=== PATIENT | female | born 1985 | race American Indian/Alaskan Native ===

== ENCOUNTER 2020-09-05 07:47 | Day surgery (SDC) | payer MEDICAID ==
[~2020-09-05 07:47] MED LIST: BUPIVACAINE/PF (0.5%) 5 MG/1 ML 30 ML VIAL INFILTRATI ONE; SODIUM CHLORIDE 0.9% IRR 1,500 ML BOTTLE IR ONE
--- NOTE | 2020-09-05 08:36 | Anesthesia Day of Surgery ---
Anesthesia Day of Surgery - Day of Surgery Patient Examined: Yes Patient H&P Reviewed: Yes Patient is NPO: Yes
[2020-09-05] MEDS ORDERED: ACETAMINOPHEN 500 MG TAB PO NR (08:37)
[2020-09-05] MEDS ORDERED: MAGNESIUM OXIDE 400 MG TAB PO NR (08:37)
--- NOTE | 2020-09-05 08:37 | Anesthesia Consultation ---
Anesthesia Consult and Med Hx Date of service: 09/05/20 - Airway Anesthetic Teeth Evaluation: Good ROM Head & Neck: Adequate Mental/Hyoid Distance: Adequate Mallampati Class: Class II Intubation Access Assessment: Good - Pre-Operative Health Status ASA Pre-Surgery Classification: ASA1 Proposed Anesthetic Plan: General - Pulmonary Hx Respiratory Symptoms: No (+2FS) - Cardiovascular System Hx Heart Murmur: Yes - Central Nervous System Hx Psychiatric Problems: No - Hematic Hx Anemia: Yes (Past hx) Hx Sickle Cell Disease: Yes (Trait) - Other Systems Hx Alcohol Use: Yes (Occas) Hx Cancer: No Hx Obesity: No
[2020-09-05] MEDS ORDERED: HYDROmorphone 1 MG/1 ML INJ IV PRN ×2 (08:38)
[2020-09-05] MEDS ORDERED: ONDANSETRON 4 MG/2 ML INJ IV PRN (08:38)
[2020-09-05] MEDS ORDERED: LACTATED RINGERS 1,000 ML IV SCH (08:45)
[2020-09-05] MEDS ORDERED: GABAPENTIN 300 MG CAP PO NR (09:00)
[2020-09-05] MEDS ORDERED: CELECOXIB 200 MG CAP PO NR (09:00)
[2020-09-05] MEDS ORDERED: MIDAZOLAM 2 MG/2 ML INJ IV NR (09:00)
[2020-09-05] MEDS ORDERED: ONDANSETRON 4 MG/2 ML INJ ONE (09:37)
[2020-09-05] MEDS ORDERED: SUCCINYLCHOLINE CHLORIDE 200 MG/10 ML INJ MDV ONE (09:37)
[2020-09-05] MEDS ORDERED: ROCURONIUM 50 MG/5 ML INJ IV ONE (09:37)
[2020-09-05] MEDS ORDERED: dexAMETHasone 20 MG/5 ML VIAL ONE (09:37)
[2020-09-05] MEDS ORDERED: PHENYLEPHRINE/NS 1,000 MCG/10 ML SYRINGE (OR USE) IV ONE (09:37)
[2020-09-05] MEDS ORDERED: NEOSTIGMINE 10MG/10 ML INJ MDV ONE (09:37)
[2020-09-05] MEDS ORDERED: LIDOCAINE MPF (2%) 20 MG/1 ML VIAL 5 ML ONE (09:37)
[2020-09-05] MEDS ORDERED: GLYCOPYRROLATE 0.4 MG/2 ML INJ ONE (09:37)
[2020-09-05] MEDS ORDERED: propofoL 200 MG/20 ML VIAL IV ONE (09:38)
[2020-09-05] MEDS ORDERED: fentaNYL 100 MCG/2 ML INJ ONE (09:38)
[2020-09-05] MEDS ORDERED: ePHEDrine SULFATE 50 MG/1 ML INJ ONE (10:00)
[2020-09-05] MEDS ORDERED: SODIUM CHLORIDE 0.9% IRR 1,500 ML BOTTLE IR ONE (10:21)
[2020-09-05] MEDS ORDERED: BUPIVACAINE/PF (0.5%) 5 MG/1 ML 30 ML VIAL INFILTRATI ONE ×2 (10:49)
[2020-09-05] MEDS ORDERED: ESMOLOL 100 MG/10 ML INJ IV ONE (10:50)
[2020-09-05] MEDS ORDERED: HYDROmorphone 1 MG/1 ML INJ ONE (10:51)
--- NOTE | 2020-09-05 10:59 | History and Physical Report ---
History of Present Illness History of present illness: H&P done in the office and should be scanned in via the paper chart Medications and Allergies Allergies Allergy/AdvReac Type Severity Reaction Status Date / Time Penicillins Allergy Hives, Verified 09/04/20 18:28 Throat swelling Home Medications Medication Instructions Recorded Confirmed Last Taken Type No Known Home Medications [No 09/04/20 09/04/20 Unknown History Reported Home Medications] Active Meds: Active Medications Acetaminophen (Acetaminophen 500 Mg Tab) 1,000 mg PO ONCE NR Stop: 09/05/20 23:00 Celecoxib (Celecoxib 200 Mg Cap) 200 mg PO PREOP NR Stop: 09/05/20 23:00 Gabapentin (Gabapentin 300 Mg Cap) 300 mg PO PREOP NR Stop: 09/05/20 23:00 Hydromorphone HCl (Hydromorphone 1 Mg/1 Ml Inj) 0.25 mg IV Q10MIN PRN PRN Reason: Pain, Moderate (4-6) Stop: 09/05/20 23:00 Hydromorphone HCl (Hydromorphone 1 Mg/1 Ml Inj) 0.5 mg IV Q10MIN PRN PRN Reason: Pain , Severe (7-10) Stop: 09/05/20 23:00 Lactated Ringer's (Lactated Ringers) 1,000 mls @ 125 mls/hr IV DIRECT KOLE Magnesium Oxide (Magnesium Oxide 400 Mg Tab) 400 mg PO ONCE NR Stop: 09/05/20 23:00 Midazolam HCl (Midazolam 2 Mg/2 Ml Inj) 2 mg IV PREOP NR Stop: 09/05/20 23:59 Ondansetron HCl (Ondansetron 4 Mg/2 Ml Inj) 4 mg IV ONCE PRN PRN Reason: Nausea And Vomiting Stop: 09/05/20 23:00 Results All other labs normal.
--- NOTE | 2020-09-05 11:08 | Post Operative Note ---
Date of procedure: 09/05/20 Pre-op diagnosis: Simple left ovarian cyst Post-op diagnosis: same (Same) Findings: Patient with a large simple left ovarian cyst filled with clear straw-colored fluid. Cyst was anterior and superior to the uterus. The ovary was not torsed. It was approximately 7 cm in size as the ultrasound suggested. Both tubes and the right ovary were within normal limits as was the uterus. The rest of the pelvic survey was within normal limits. The upper abdominal survey was limited by presence of adhesions superior to the umbilical trocar from the omentum. Procedure: Indication: This is a 35-year-old with a large simple ovarian cyst on the left side. It was 7 cm on ultrasound. Patient having pelvic pain from it. As result patient here for procedure below. Procedure: Laparoscopic left ovarian cystectomy Patient taken the operating room and prepped and draped in usual fashion. Attention was first turned vaginally where single-tooth tenaculum was applied to the anterior lip of the cervix and an acorn uterine manipulator was placed. Attention was now turned abdominally where a 5 mm incision was made in the umbilicus. Veres needle then placed in the abdominal cavity. The abdomen was appropriately insufflated with CO2 gas. Veres needle removed and the 5 mm trocar was placed in abdominal cavity. Placement confirmed with the camera. Attention was turned suprapubically where a 5 mm incision was made and the 5 mm trocar was placed suprapubically in the midline under direct visualization. Trocar placed successfully and without difficulty. This was also done in the exact same fashion in the right lower quadrant about 2 fingerbreadths superior and medial to the ASIS. This 5 mm trocar was also placed successfully and without difficulty. Attention was now turned to the ovarian cyst. Using the EndoShears and cautery, an incision was made into the ovarian cyst. The clear straw-colored fluid was then suctioned out using the suction stain sprayer. Good hemostasis noted. The opening into the ovarian cyst was then increased with the EndoShears. At this point using graspers the cyst wall was grasped and removed from the ovary. The cyst wall was taken out and sent to pathology. Good hemostasis was still noted in the ovary. The ovarian cavity that resulted was stuffed with Surgicel. Abdomen was desufflated. Good hemostasis noted. At this point the abdomen was fully desufflated. Trochars were removed. Trocar sites were closed with 4-0 Vicryl in a subcuticular fashion followed by Marcaine. The acorn uterine manipulator and single-tooth tenaculum were removed. Procedure concluded at this point. Patient tolerated the procedure well. All instrument lap counts were correct. Patient taken to the recovery room in stable condition. Anesthesia: GETA Surgeon: MARNIE COLLINS Estimated blood loss: minimal Pathology: list (Left ovarian cyst wall) Specimen disposition: to lab Condition: stable Disposition: PACU
--- NOTE | 2020-09-05 11:12 | Short Stay Summary ---
Short Stay Documentation Date of service: 09/05/20 Narrative H&P: 35-year-old is status post an uncomplicated left ovarian cystectomy for large simple cyst on 09/05/2020. Please see H&P and operative report for details. Again surgery was uncomplicated and patient sent home in stable condition with recommendation to follow-up in the office 2 weeks postop - History H&P: obtained from office - Allergies and Medications Current Medications: Allergies Penicillins Allergy (Verified 09/04/20 18:28) Hives, Throat swelling Home Medications Medication Instructions Recorded Confirmed Last Taken Type Ibuprofen [Motrin 800 MG tab] 800 mg PO Q8HR PRN #30 tablet 09/05/20 Unknown Rx oxyCODONE /ACETAMINOPHEN [Percocet 1 tab PO Q4HR PRN #30 tab 09/05/20 Unknown Rx 5/325] Active Medications Acetaminophen (Acetaminophen 500 Mg Tab) 1,000 mg PO ONCE NR Stop: 09/05/20 23:00 Celecoxib (Celecoxib 200 Mg Cap) 200 mg PO PREOP NR Stop: 09/05/20 23:00 Gabapentin (Gabapentin 300 Mg Cap) 300 mg PO PREOP NR Stop: 09/05/20 23:00 Hydromorphone HCl (Hydromorphone 1 Mg/1 Ml Inj) 0.25 mg IV Q10MIN PRN PRN Reason: Pain, Moderate (4-6) Stop: 09/05/20 23:00 Hydromorphone HCl (Hydromorphone 1 Mg/1 Ml Inj) 0.5 mg IV Q10MIN PRN PRN Reason: Pain , Severe (7-10) Stop: 09/05/20 23:00 Lactated Ringer's (Lactated Ringers) 1,000 mls @ 125 mls/hr IV DIRECT KOLE Magnesium Oxide (Magnesium Oxide 400 Mg Tab) 400 mg PO ONCE NR Stop: 09/05/20 23:00 Midazolam HCl (Midazolam 2 Mg/2 Ml Inj) 2 mg IV PREOP NR Stop: 09/05/20 23:59 Ondansetron HCl (Ondansetron 4 Mg/2 Ml Inj) 4 mg IV ONCE PRN PRN Reason: Nausea And Vomiting Stop: 09/05/20 23:00 - Disposition Condition at discharge: Stable Disposition: DC- TO HOME OR SELFCARE Short Stay Discharge Plan Follow up with: MARNIE COLLINS MD [Staff Physician] - 14 Days Prescriptions: Ibuprofen [Motrin 800 MG tab] 800 mg PO Q8HR PRN #30 tablet PRN Reason: Pain , Severe (7-10) oxyCODONE /ACETAMINOPHEN [Percocet 5/325] 1 tab PO Q4HR PRN #30 tab PRN Reason: Pain , Severe (7-10)
[2020-09-05] MEDS ORDERED: oxyCODONE /ACETAMINOPHEN 5-325MG TAB PO PRN (11:38)
[2020-09-05 12:19] VITALS: BP 119/65
--- NOTE | 2020-09-05 17:43 | Post Anesthesia Evaluation ---
- Post Anesthesia Evaluation Patient Participated: Yes Airway Patent: Yes Stable Respiratory Function: Yes Nausea/Vomiting: No Temp > 96.8F: Yes Pain Manageable: Yes Adequeate Hydration: Yes Anesthesia Complications: No Block Receding Appropriately: Not Applicable Patient on Ventilator: No
== END 2020-09-05 12:35 | disposition home or self-care (01) ==
LOC: OR 07:47
PROVIDERS: ATTEND Obstetrics & Gynecology
DX: N83.202 Unspecified ovarian cyst, left side (principal); D64.9 Anemia, unspecified; Z79.899 Other long term (current) drug therapy; Z88.0 Allergy status to penicillin; Z98.51 Tubal ligation status; Z72.89 Other problems related to lifestyle; Z98.890 Other specified postprocedural states
CPT/HCPCS: 58662; 81025; 88305; J0330; J1100; J1170; J2370; J2405; J2704; J2710; J3010; J7120

== ENCOUNTER 2020-09-07 12:36 | Emergency (ER) | payer MEDICAID ==
[2020-09-07 13:07] VITALS: BP 146/79
--- NOTE | 2020-09-07 15:44 | Vascular Lab Report ---
DUPLEX DOPPLER LOWER EXTREMITY VEINS, BILATERAL INDICATION: Pain to back of calf/post op. TECHNIQUE: Duplex doppler imaging was performed through the veins of both lower extremities using ve nous compression and other maneuvers. COMPARISON: No relevant prior imaging study available. FINDINGS: Right Common femoral vein: Negative. Right Superficial femoral vein: Negative. Right Popliteal vein: Negative. Right Calf veins: Negative. Left Common femoral vein: Negative. Left Superficial femoral vein: Negative. Left Popliteal vein: Negative. Left Calf veins: Negative. Additional findings: A left popliteal cyst is identified measuring 2.0 x 0.7 cm. IMPRESSION: No sonographic evidence for DVT in either lower extremity. Left popliteal cyst. Signer Name: Jude Fonseca Jr, MD Signed: 09/07/2020 3:40 PM Workstation Name: [id number]
--- NOTE | 2020-09-07 18:29 | Emergency Department Report ---
ED General Adult HPI - General Chief complaint: Extremity Problem,Nontraumatic Stated complaint: LT LEG PAIN PUI?: No Time Seen by Provider: 09/07/20 18:22 Source: patient Mode of arrival: Ambulatory Limitations: No Limitations - History of Present Illness Initial comments: 35-year-old [place] female status post ovarian cyst removal 2 days ago presents emergency department complaining of a 1 day history of left lower extremity calf pain which worsens with range of motion palpation and certain positions of an unknown etiology. Pain is sharp and shooting and she shoots up her leg however the characteristic the pain is not the same prior to her cyst removal. She recalls no traumatic events no fever, chills, sweats no numbness or tingling. Quality: aching, dull Consistency: constant Associated Symptoms: denies: confusion, chest pain, cough, loss of appetite, malaise, nausea/vomiting, syncope, weakness, other - Related Data Previous Rx's Medication Instructions Recorded Last Taken Type Ibuprofen [Motrin 800 MG tab] 800 mg PO Q8HR PRN #30 tablet 09/05/20 Unknown Rx oxyCODONE /ACETAMINOPHEN [Percocet 1 tab PO Q4HR PRN #30 tab 09/05/20 Unknown Rx 5/325] Allergies Allergy/AdvReac Type Severity Reaction Status Date / Time Penicillins Allergy Hives, Verified 09/04/20 18:28 Throat swelling ED Review of Systems ROS: Stated complaint: LT LEG PAIN Other details as noted in HPI Comment: All other systems reviewed and negative ED Past Medical Hx - Past Medical History Previous Medical History?: Yes Hx Sickle Cell Disease: Yes (Trait) Hx Headaches / Migraines: Yes - Surgical History Past Surgical History?: Yes Additional Surgical History: ovarian cyst - Social History Smoking Status: Never Smoker - Medications Home Medications: Home Medications Medication Instructions Recorded Confirmed Last Taken Type Ibuprofen [Motrin 800 MG tab] 800 mg PO Q8HR PRN #30 tablet 09/05/20 Unknown Rx oxyCODONE /ACETAMINOPHEN [Percocet 1 tab PO Q4HR PRN #30 tab 09/05/20 Unknown Rx 5/325] ED Physical Exam - General Limitations: No Limitations General appearance: alert, in no apparent distress - Head Head exam: Present: atraumatic, normocephalic - Eye Eye exam: Present: normal appearance - ENT ENT exam: Present: mucous membranes moist - Neck Neck exam: Present: normal inspection - Respiratory Respiratory exam: Present: normal lung sounds bilaterally. Absent: respiratory distress - Cardiovascular Cardiovascular Exam: Present: regular rate, normal rhythm. Absent: systolic murmur, diastolic murmur, rubs, gallop - GI/Abdominal GI/Abdominal exam: Present: soft, normal bowel sounds - Extremities Exam Extremities exam: Present: normal inspection, normal capillary refill, calf tenderness (Tenderness to the base of the left calf of the leg situated with opposed plantar flexion. No Homans' sign, no cords, no bruising no hematoma). Absent: other - Back Exam Back exam: Present: normal inspection - Neurological Exam Neurological exam: Present: alert, oriented X3, CN II-XII intact, normal gait - Psychiatric Psychiatric exam: Present: normal affect, normal mood - Skin Skin exam: Present: warm, dry, intact, normal color. Absent: rash ED Course Vital Signs 09/07/20 13:06 Temperature 98 F Pulse Rate 91 H Respiratory 16 Rate Blood Pressure 146/79 [Right] O2 Sat by Pulse 97 Oximetry Critical care attestation.: If time is entered above; I have spent that time in minutes in the direct care of this critically ill patient, excluding procedure time. ED Disposition Clinical Impression: Left leg pain Disposition: DC-01 TO HOME OR SELFCARE Is pt being admited?: No Does the pt Need Aspirin: No Condition: Stable Instructions: How to Use Cold Therapy, Pain Without a Known Cause Additional Instructions: Restart anti-inflammatories and oxycodone at home follow-up with Dr. Vazquez in to reevaluate his pain Referrals: PRIMARY CARE, [Primary Care Provider] - 3-5 Days
== END 2020-09-07 18:45 | disposition home or self-care (01) ==
LOC: ED 12:36
DX: M79.662 Pain in left lower leg (principal); G43.909 Migraine, unspecified, not intractable, without status migrainosus; D57.1 Sickle-cell disease without crisis; Z98.890 Other specified postprocedural states; Z79.1 Long term (current) use of non-steroidal anti-inflammatories (NSAID); Z79.899 Other long term (current) drug therapy; Z88.0 Allergy status to penicillin